=== PATIENT | female | born 2000 | race Caucasian/White ===

== ENCOUNTER 2020-04-19 18:32 | Emergency (ER) | payer OTHER ==
[~2020-04-19] VITALS: Ht 167.6 cm; Wt 104.5 kg
[2020-04-19 18:40] VITALS: Ht 167.6 cm; Wt 104.5 kg
[2020-04-19 19:46] VITALS: BP 122/78
== END 2020-04-19 19:46 | disposition home or self-care (01) ==
LOC: D.ER 18:32
DX: S93.401A Sprain of unspecified ligament of right ankle, initial encounter (principal); W22.8XXA Striking against or struck by other objects, initial encounter; Y93.9 Activity, unspecified; Y92.9 Unspecified place or not applicable